=== PATIENT | male | born 1990 | race Two or more races ===

== ENCOUNTER 2021-10-04 02:53 | Emergency (ER) | payer MEDICAID, OTHER ==
[~2021-10-04] VITALS: Ht 182.9 cm; Wt 86.2 kg
--- NOTE | 2021-10-04 03:07 | NUR ---
BIBRA 60 C/O S/I WITH NO SPECIFIC PLAN. WANTS VOLUNTARY ADMIT TO PSYCH. PT A/OX3. TOLERATING R/A WELL WITH NO SOB. SAFETY MEASURES IN PLACE. PT IN GOWN AND BELONGINGS PLACED IN LOCKER.
--- NOTE | 2021-10-04 03:18 | NUR ---
URINE AND COVID ANTIGEN SWAB COLLECTED AND SENT TO LAB
--- NOTE | 2021-10-04 03:23 | NUR ---
FIRE TECHNOLOGY INSTRUCTOR AT PT'S BEDSIDE
[2021-10-04 03:39] LABS: BASOPHILS % (AUTO) 0.5 % (0.0-2.0); BILIRUBIN,URINE NEGATIVE (NEGATIVE); COLOR,URINE YELLOW (YELLOW); EOSINOPHILS % (AUTO) 4.9 % (0.0-6.0); HEMATOCRIT 37 % (39-51); HEMOGLOBIN 12.4 g/dL (13.5-17.5); LEUKOCYTE ESTERASE ,URINE NEGATIVE (NEGATIVE); LYMPHOCYTES # (AUTO) 2.7 K/uL (0.8-4.8); LYMPHOCYTES % (AUTO) 31.9 % (20.0-44.0); MEAN CORPUSCULAR HGB CONC 33 g/dl (31.0-36.0); MEAN CORPUSCULAR VOLUME 86 fL (80-96); MONOCYTES # (AUTO) 0.8 K/uL (0.1-1.30); MONOCYTES % (AUTO) 9.7 % (2.0-12.0); NEUTROPHILS # (AUTO) 4.4 K/uL (1.8-8.9); NITRITE, URINE NEGATIVE (NEGATIVE); PH,URINE 5.5 (5.0-8.0); PLATELET COUNT (AUTO) 308 K/uL (150-450); PROTEIN,URINE NEGATIVE (NEGATIVE); RED BLOOD CELL COUNT(AUTO) 4.35 MIL/uL (4.5-6.0); UGLUCOSE NEGATIVE (NEGATIVE); UROBILINOGEN,URINE 0.2 EU/dL (0.2); WHITE BLOOD COUNT (AUTO) 8.4 K/uL (4.3-11.0)
[2021-10-04 03:50] LABS: CALCIUM, SERUM 8.2 mg/dL (8.5-10.1); CARBON DIOXIDE 24 mmol/L (21-32); CHLORIDE 110 mmol/L (98-107); CREATININE 1.2 mg/dL (0.6-1.3); GLUCOSE 135 mg/dL (74-106); POTASSIUM 3.5 mmol/L (3.5-5.1); SODIUM SERUM 145 mmol/L (136-145); UREA NITROGEN, BLOOD 28 mg/dL (7-18)
[2021-10-04 03:54] LABS: ALANINE AMINOTRANSFERASE 146 U/L (12-78); ALBUMIN 3.7 g/dL (3.4-5.0); ALCOHOL, BLOOD < 3 mg/dL (0-0); ALKALINE PHOSPHATASE 103 U/L (46-116); ASPARTATE AMINOTRANSFERASE 62 U/L (15-37); BILIRUBIN,TOTAL 0.9 mg/dL (0.2-1.0); TOTAL PROTEIN, SERUM 7.4 g/dL (6.4-8.2)
[2021-10-04 03:55] LABS: BILIRUBIN,DIRECT 0.2 mg/dL (0.0-0.2)
[2021-10-04 03:56] LABS: ACETAMINOPHEN < 2 ug/ml (10-30)
--- NOTE | 2021-10-04 05:49 | NUR ---
FACESHEET AND CLINICALS FAXED TO [facility].
--- NOTE | 2021-10-04 08:40 | NUR ---
[facility]TA[facility] NO BED AVAILABILITY AT THIS TIME CHECK AFTER 1129 SPOKE WITH OCTOBER.
--- NOTE | 2021-10-04 09:13 | NUR ---
PT ACCEPTED TO [facility] UNDER DR. LEPE WILL UPDATE WHEN BED IS AVAILABLE.
--- NOTE | 2021-10-04 10:00 | NUR ---
SKID MACHINE OPERATOR WILL BE HERE AT 1500 PER ANSELMO
[2021-10-04] MEDS ORDERED: LORAZEPAM 1 MG TABLET PO ONE (11:30)
[2021-10-04] MEDS ORDERED: LORAZEPAM 1 MG TABLET ONE (11:39)
--- NOTE | 2021-10-04 11:57 | NUR ---
LUNCH TRAY PROVIDED. TOLERATED WELL
--- NOTE | 2021-10-04 15:15 | NUR ---
PATIENT PICKED UP BY [facility] IN STABLE CONDITION. ALL BELONGINGS GIVEN BACK TO PATIENT. CLINICALS PROVIDED TO BE GIVEN TO [facility].
[2021-10-04 15:37] VITALS: BP 131/88
== END 2021-10-04 15:49 ==
LOC: ER 02:55
DX: R45.851 Suicidal ideations (principal); Z59.00 Homelessness unspecified; Z20.822 Contact with and (suspected) exposure to COVID-19
CPT/HCPCS: 36415; 80048; 80076; 80143; 80307; 80320; 81003; 85025; 87426; 99285; C9803; G0480

== ENCOUNTER 2021-10-08 18:02 | Emergency (ER) | payer MEDICAID ==
[~2021-10-08] VITALS: Ht 182.9 cm; Wt 86.2 kg
--- NOTE | 2021-10-08 19:30 | NUR ---
DANI 60, SEEN ON THE STREETS UNCONSCIOUS. 2MG IV NARCAN GIVEN. PT A/O X 2, RR EVEN UNLABORED, NO SOB NOTED. PATIENT TAKEN TO ER BED 11. PT CONNECTED TO MONITORS. WILL CONTINUE TO MONITOR.
--- NOTE | 2021-10-08 19:48 | NUR ---
XRAY AT BEDSIDE
[2021-10-08 20:01] LABS: BASOPHILS # (AUTO) 0.1 K/uL (0.0-0.2); BASOPHILS % (AUTO) 0.4 % (0.0-2.0); EOSINOPHILS % (AUTO) 0.4 % (0.0-6.0); HEMATOCRIT 38 % (39-51); HEMOGLOBIN 12.6 g/dL (13.5-17.5); LYMPHOCYTES # (AUTO) 1.1 K/uL (0.8-4.8); LYMPHOCYTES % (AUTO) 7.6 % (20.0-44.0); MEAN CORPUSCULAR HGB CONC 33 g/dl (31.0-36.0); MEAN CORPUSCULAR VOLUME 87 fL (80-96); MONOCYTES # (AUTO) 0.7 K/uL (0.1-1.30); MONOCYTES % (AUTO) 5.2 % (2.0-12.0); NEUTROPHILS # (AUTO) 12.3 K/uL (1.8-8.9); NEUTROPHILS % (AUTO) 86.4 % (43.0-81.0); PLATELET COUNT (AUTO) 227 K/uL (150-450); RED BLOOD CELL COUNT(AUTO) 4.37 MIL/uL (4.5-6.0); WHITE BLOOD COUNT (AUTO) 14.2 K/uL (4.3-11.0)
[2021-10-08 20:22] LABS: ALANINE AMINOTRANSFERASE 169 U/L (12-78); ALCOHOL, BLOOD < 3 mg/dL (0-0); ALKALINE PHOSPHATASE 107 U/L (46-116); ASPARTATE AMINOTRANSFERASE 67 U/L (15-37); BILIRUBIN,DIRECT 0.1 mg/dL (0.0-0.2); BILIRUBIN,TOTAL 0.4 mg/dL (0.2-1.0); CALCIUM, SERUM 8.5 mg/dL (8.5-10.1); CARBON DIOXIDE 26 mmol/L (21-32); CHLORIDE 104 mmol/L (98-107); CREATININE 1.1 mg/dL (0.6-1.3); GLUCOSE 132 mg/dL (74-106); POTASSIUM 4.3 mmol/L (3.5-5.1); SODIUM SERUM 137 mmol/L (136-145); TOTAL PROTEIN, SERUM 7.9 g/dL (6.4-8.2); UREA NITROGEN, BLOOD 29 mg/dL (7-18)
[2021-10-08 20:26] LABS: ACETAMINOPHEN 0 ug/ml (10-30)
[2021-10-08] MEDS ORDERED: NALO4SPR BNOSTRILS (21:34)
[2021-10-08 22:00] VITALS: BP 128/71
--- NOTE | 2021-10-08 22:05 | NUR ---
PT AMBUALTED TO RESTROOM WITH STEADY GAIT, RETURNED TO BED.
--- NOTE | 2021-10-08 22:47 | NUR ---
Patient discharged to home in stable condition. Written and verbal after care instructions given. Patient verbalizes understanding of instruction.
== END 2021-10-08 22:47 | disposition home or self-care (01) ==
LOC: ER 18:06
DX: T40.601A Poisoning by unspecified narcotics, accidental (unintentional), initial encounter (principal); F17.200 Nicotine dependence, unspecified, uncomplicated; Z59.00 Homelessness unspecified; Y92.89 Other specified places as the place of occurrence of the external cause
CPT/HCPCS: 36415; 71045-TC; 80048-TC; 80076-TC; 84484-TC; 85025-TC; G0480